=== PATIENT | female | born 1935 | race Caucasian/White ===

== ENCOUNTER 2021-10-27 09:16 | Emergency (ER) | payer OTHER ==
[~2021-10-27] VITALS: Ht 154.9 cm; Wt 65.8 kg
[2021-10-27] MEDS ORDERED: FUROSEMIDE20 MG PO (09:36)
[2021-10-27] MEDS ORDERED: ATORVASTATIN CA10 MG PO (09:36)
[2021-10-27] MEDS ORDERED: KAPSPARGO SPRIN25 MG PO (09:36)
[2021-10-27] MEDS ORDERED: MESALAMINE DR400 MG PO (09:37)
== END 2021-10-27 13:02 | disposition home or self-care (01) ==
LOC: ER 09:16
DX: S61.411A Laceration without foreign body of right hand, initial encounter (principal); S70.02XA Contusion of left hip, initial encounter; M25.511 Pain in right shoulder; W05.0XXA Fall from non-moving wheelchair, initial encounter; Y93.9 Activity, unspecified; Y92.9 Unspecified place or not applicable; Y99.9 Unspecified external cause status